=== PATIENT | male | born 1970 | race Two or more races ===

== ENCOUNTER 2024-05-23 13:38 | Emergency (ER) | payer OTHER ==
[2024-05-23 13:42] VITALS: BP 154/85; PULSE 57; RESP 18; TEMP 97.5; BMI 28.2
[2024-05-23] MEDS ORDERED: LIDOCAINE 4% PATCH TP ONE (14:55)
[2024-05-23] MEDS ORDERED: IBUPROFEN 600 MG TABLET (FP) PO ONE (14:55)
[2024-05-23] MEDS: IBUPROFEN 600 MG TABLET (FP) PO ONE (14:59)
[2024-05-23] MEDS: LIDOCAINE 4% PATCH TP ONE (14:59)
== END 2024-05-23 15:54 | disposition home or self-care (01) ==
LOC: JERFT 13:38
DX: S46.811A Strain of other muscles, fascia and tendons at shoulder and upper arm level, right arm, initial encounter (principal); M54.50 Low back pain, unspecified; V49.40XA Driver injured in collision with unspecified motor vehicles in traffic accident, initial encounter; Y92.410 Unspecified street and highway as the place of occurrence of the external cause
CPT/HCPCS: 72100-TC-FY; 73030-TC-RT-FY; 99284-25